=== PATIENT | female | born 1950 | race Caucasian/White ===

== ENCOUNTER → 2025-01-12 | Outpatient (CLI) | payer MEDICARE, OTHER, SELFPAY ==
--- NOTE | 2025-01-12 17:16 | CT_ITS ---
PROCEDURE: SINUS/FACIAL BONE 01/12/2025 REASON FOR EXAM: NASAL POLYP TECHNIQUE: SINUS/FACIAL BONE Coronal and Sagittal reconstruction series were provided. One or more dose reduction techniques were used (e.g., Automated exposure control, adjustment of the mA and/or kV according to patient size, use of iterative reconstruction technique). RADIATION DOSE SUMMARY: CTDlvol: 33.06 mGy DLP: 647 mGycm COMPARISON: None. FINDINGS: Frontal: Moderate chronic mucosal inflammatory thickening with associated secretions suggestive of superimposed acute sinusitis. Ethmoid: Moderate chronic mucosal inflammatory thickening with associated secretions suggestive of superimposed acute sinusitis. Sphenoid: Moderate chronic mucosal inflammatory thickening with associated secretions suggestive of superimposed acute sinusitis. Maxillary: Moderate chronic mucosal inflammatory thickening with associated secretions suggestive of superimposed acute sinusitis. Turbinates: No significant hypertrophy. Nasal Septum: Mild reverse S shaped nasal septum deviation. Well-defined 1.4 cm nasal polyp is noted in the most posterior aspect of the left nasal cavity abutting the posterior aspect of the left middle turbinate. Well-defined 1.3 cm nasal polyp is noted in the anterior aspect of the left nasal cavity between the left middle and inferior turbinates. Mastoids/Middle Ears: Unremarkable. CT/Sinus/Facial Bone IMPRESSION: 1. Moderate diffuse colonic mucosal inflammatory thickening of the paranasal si nuses with associated secretions suggestive of superimposed acute sinusitis. 2. Well-defined 1.4 cm nasal polyp is noted in the most posterior aspect of the left nasal cavity abutting the posterior aspect of the left middle turbinate. 3. Well-defined 1.3 cm nasal polyp is noted in the anterior aspect of the left nasal cavity between the left middle and inferior turbinates. Reading [facility] [id number]
== END | disposition home or self-care (01) ==
LOC: CT 17:04
PROVIDERS: Referring Provider Otolaryngology Otolaryngology/Facial Plastic Surgery; Visit Provider Otolaryngology Otolaryngology/Facial Plastic Surgery
DX: J33.9 Nasal polyp, unspecified (principal)
CPT/HCPCS: 70486